=== PATIENT | male | born 1960 | race Caucasian/White ===

== ENCOUNTER → 2016-08-18 | Outpatient (CLI) | payer OTHER ==
[~2016-08-18] VITALS: Ht 172.7 cm; Wt 129.7 kg
[~2016-08-18] MED LIST: BENICAR HCT 401 EAC1 PO; BENICAR20 MG PO; BUPRENORPHIN-N1 EACH SL; BUPRENORPHINE HC8 MG SL; BUPRENORPHINE HC8 MG TD; CELEBREX 200 M200 M1 PO; CELEBREX 200 M200 MG PO; CRANBERRY 4001 EAC1 PO; CYMBALTA60 MG PO; DEPO-TESTO100 MG/1 M IM; FELODIPINE ER10 MG PO; FELODIPINE ER2.5 MG; FIRST-TESTOSTER60 G1 TD; FISH OIL 1,0001 EAC5 PO; GLUCOSAMINE1000 MG PO; LIDODERM 5%1 PATCH; LISINOPRIL-HCT1 EAC2 PO; LISINOPRIL10 MG PO; LOSARTAN-HCTZ1 EAC1 PO; MOBIC7.5 MG PO; MUCINEX DM TABL1 TA1 PO; NEURONTIN 300300 M1 PO; OMEGA-31000 M1 PO; OXYCODONE-APAP1 EAC6 PO; OXYCONTIN30 MG PO; PARAFON FORTE500 M2 PO; PERCOCET 7.5-31 EAC1 PO; PERCOCET 7.5-31 EACH PO; PRILOSEC 10MG C10 M1 PO; RASPBERRY KETO100 MG PO; SKELAXIN 800 M800 M1 PO; SUBOXONE 8 MG-1 EAC1 SL; SUBOXONE 8 MG-1 EAC2 SL; SUBOXONE 8 MG-1 EAC3 SL; TIZANIDINE HCL4 M1 PO; TIZANIDINE HCL4 MG PO; TIZANIDINE4 MG/1 TA1 PO; TRAZODONE HCL50 MG PO; VITAMIN D31000 UNI2 PO; ZANAFLEX4 M1 PO
--- NOTE | ~2016-08-18 | HPC ---
[facility] [place] [address] PAIN MANAGEMENT CONSULTATION Name: MARIANNE LEYBENJAMIN Garcia Room #: REG DAYANARAJon Boggs#: [id number] Admission: 08/18/16 Attend Phys: Patrice Cordova DO Discharge: Date of : 60 Report #: [id number] THIS REPORT FOR: //name// CC: Ko Cordova SUBJECTIVE: The patient is a pleasant 56-year-old gentleman I treated for many years for bilateral knee pain requiring complex medication management. He had had a gastric bypass and had great difficulty with absorption of oral opiates. He ultimately was stable for many years on Suboxone 8/2 sublingual. He progressed to have a right total knee arthroplasty in 05/2015, left total knee arthroplasty in 07/2015. I last saw him in December, and we weaned off opiates altogether. He had chronic left shoulder pain with a longstanding rotator cuff tear. He ultimately had rotator cuff repair in 12/2015. This unfortunately did not go well, and he is having increasing pain there. Also, he has increasing pain in the low back; it is a little more on the right than the left. The patient is on lisinopril/hydrochlorothiazide, states he is taking that agent. PHYSICAL EXAMINATION: GENERAL: A 56-year-old gentleman, BMI is 43.5 kilograms per meter squared. Blood pressure is elevated today 152/100, pulse 102, and respirations are 18. NEUROLOGIC: Cranial nerves 2-12 are grossly intact. He does have a dysconjugate gaze. Upper extremity strength is preserved. There is significant decreased range of motion in left arm to abduction and extension. ABDOMEN: A large pannus. MUSCULOSKELETAL: Rises from chair using armrest. Gait is tandem. Very tender over the right SI with a positive JONY test on this side. Positive [place]. Positive distraction. The patient was seen for prolonged visit today from 1422 to 1450, greater than 50% of this time spent counseling the patient. Ultimately, we have elected to enter into an opiate [id number] contract to continue the patient on some chronic pain medicines. His pain has become more problematic following his shoulder surgery, and now with some SI mediated pain, he is having difficulty with work. 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 ASSESSMENT: Degenerative joint disease, bilateral knees by history; sacroiliac joint dysfunction by clinical exam and left rotator cuff repair with ongoing left shoulder pain requiring complex medication management. Co-morbidiy includes history of bariatric gastric surgery which has significantly impacted his ability to absorb po opioids. He did well with suboxone for many years prior to his knee surgeries. RECOMMENDATIONS: 1. We reviewed an opiate [id number] contract. [facility] [address] [place] [address] PAIN MANAGEMENT CONSULTATION Name: LAURA LEY Room #: REG SOPHIE Boggs#: [id number] Admission: 08/18/16 Attend Phys: Patrice Cordova DO Discharge: Date of : 60 Report #: [id number] patient understands his responsibilities under this contract having been a contract patient for many years. 2. We will start the patient back on Suboxone 11/15 up to b.i.d. I have taken the liberty of writing for 60 tablets or strips depending on whatever his insurance company will pay for. I told him to start with 1 at night. If this is sufficient, will continue. If he still has ongoing pain, increase to half in the morning and 1 at night. Again, if this is sufficient, will continue; however, I have written for him to be unable to take up to 2 S.L. tablets/film strips a day. Follow up in 1-2 months for reevaluation. <ELECTRONICALLY SIGNED> By: Patrice Cordova DO 08/21/16 0749 1514 [id number] Patrice Cordova DO /nt
[2016-08-18 13:49] VITALS: BP 152/100
== END ==
LOC: PAIN 13:11
DX: M17.0 Bilateral primary osteoarthritis of knee (principal); M53.3 Sacrococcygeal disorders, not elsewhere classified; I10 Essential (primary) hypertension; F32.9 Major depressive disorder, single episode, unspecified

== ENCOUNTER → 2016-12-08 | Outpatient (CLI) | payer OTHER ==
[~2016-12-08] VITALS: Ht 172.7 cm; Wt 125.6 kg
--- NOTE | ~2016-12-08 | HPC ---
[facility] [place] [address] PAIN MANAGEMENT CONSULTATION Name: YVES LEYFIGUEROABENJAMIN PAYAN Room #: [facility] [id number] Admission: 12/08/16 Attend Phys: Patrice Cordova DO Discharge: Date of : 60 Report #: [id number] THIS REPORT FOR: //name// CC: Ko Cordova The patient is a very pleasant 56-year-old gentleman well known to pain clinic, being treated for bilateral knee pain secondary to DJD, status post gastric bypass surgery, unable to tolerate most oral agents and in fact had had problems with opiate habituation and tolerance in the past, had been stable on Suboxone for many years. I saw him back on 08/18/2016 after a long hiatus. I started him back on Suboxone 11/15 b.i.d. Returns to pain clinic today, has been doing remarkably well on his current agents. Today, he notes that he feels like he is passing a kidney stone, he has done this in the past. He has maintained good hydration and he is afebrile. Notes otherwise his chronic shoulder, back and knee pain is generally controlled at a 5 on a VAS. Pain is exacerbated with activity and weather changes. PHYSICAL EXAMINATION: Shows a 56-year-old gentleman, BMI is elevated at 42.1, but he has lost a fair bit of weight. Blood pressure is elevated today at 165/114, pulse 73, respirations are 14, temperature is 98.7, oral. He does have some tenderness in bilateral flanks. He attributes his hypertension to increased pain from renal lithiasis. I did request the patient to follow up with the ER if he develops any symptoms of systemic illness, hyperpyrexia, nausea, vomiting. We also encouraged the patient to continue hydration. From a pain standpoint, he is doing well. No problems with daytime somnolence, mental acuity changes or constipation. No aberrant behavior suggestive for drug diversion. No subjective craving as the patient had hydrocodone in the distant past. We reviewed the fact that opiate medications are being used to provide analgesia adequate to support activities of daily living, not attempting to achieve a specific pain score on the 0-10 Visual Analog Scale. The current opiate medications are providing sufficient analgesia to allow the patient to participate in activities of daily living. The patient is not exhibiting any aberrant behavior suggestive of drug diversion. The patient is not having any adverse reactions to medications. The patient is not suffering from daytime somnolence or mental acuity changes. The patient is managing opiate-induced constipation with appropriate kbit-omr-hvspgyj agents and dietary considerations. The patient was counseled on concern for caution with operating a motor vehicle while using opiate medications. A physical exam was performed and the patient's functional status was evaluated. All patients with back pain were advised against the bed rest greater than 4 days and were advised to return to normal activities. Pain score assessment was noted and the treatment plan was reviewed with the patient. All current [address] [address] PAIN MANAGEMENT CONSULTATION Name: LAURA LEY Room #: REG SOPHIE Boggs#: [id number] Admission: 12/08/16 Attend Phys: Patrice Cordova DO Discharge: Date of : 60 Report #: [id number] medications, both prescribed and OTC were reviewed and reconciled on the electronic medical record. Tobacco screening was accomplished and smoking cessation was advised when indicated. BMI was noted and diet/exercise modification was recommended for all patients following outside normal parameters. I reviewed with the patient today their responsibilities to safeguard prescription medications, reviewed their responsibility to utilize medications only as prescribed by the physician. They are to seek and receive pain medications only from 1 physician group ( [facility]). They are to use 1 pharmacy and keep the clinic informed if they change pharmacies. Their responsibilities include making followup visits in a timely fashion and to avoid abrupt discontinuation of medication usage. Their responsibilities further include bringing their medications (bottles from the pharmacy with residual pills) to the visit for possible confirmation of pill counts and the patient understands it is their responsibility to submit to random drug screens to ensure both that the medications prescribed are present, and that no other controlled substances are present. All prescriptions provided today were generated electronically. ASSESSMENT: Chronic pain secondary to degenerative joint disease of bilateral knees, status post gastric bypass surgery, sacroiliac joint dysfunction, left rotator cuff repair and history of renal lithiasis. RECOMMENDATION: Continue Suboxone /2 b.i.d. I have taken the liberty of writing for 2 months of current medication. Follow up at that time, earlier if needed. <ELECTRONICALLY SIGNED> By: Patrice Cordova DO 12/11/16 1253 1531 [id number] Patrice Cordova DO /nt
[2016-12-08 13:35] VITALS: BP 165/114
== END ==
LOC: PAIN 07:07
DX: M17.0 Bilateral primary osteoarthritis of knee (principal); M53.3 Sacrococcygeal disorders, not elsewhere classified; G89.29 Other chronic pain

== ENCOUNTER → 2017-04-20 | Outpatient (CLI) | payer OTHER ==
[~2017-04-20] VITALS: Ht 175.3 cm; Wt 131.9 kg
[~2017-04-20] MED LIST changes: +FOLBIC RF TABL1 EACH PO; +TRAZODONE 150150 M1 PO; +VITAMIN D1000 UNI1 PO
--- NOTE | ~2017-04-20 | HPC ---
[facility] [address] [place] [address] PAIN MANAGEMENT CONSULTATION Name: LAURA LEY Room #: REG Jon Boggs#: [id number] Admission: 04/20/17 Attend Phys: Patrice Cordova DO Discharge: Date of : 60 Report #: [id number] THIS REPORT FOR: //name// CC: Ko Cordova The patient is a very pleasant 57-year-old gentleman who had long been treated for osteoarthritis affecting bilateral knees. I took over his care greater than a decade ago for lumbar radicular symptoms. He has also had increasing pain in his knees. He was taking hydrocodone at one point , had escalated up to a 6 to 8 tablets a day with dwindling efficacy. He had had a gastric bypass surgery and felt perhaps he was not absorbing the medication properly. We rotated OxyContin with again minimal efficacy. Ultimately, we rotated to Suboxone around 2008. He had been remarkably stable on this for a number of years. He subsequently had bilateral total knee arthroplasties and was last seen by myself on 12/08/2016. He subsequently weaned off of all opiate analgesics after rehabbing his knees. The patient returns to the pain clinic today. We had a prolonged visit from 12:45 to 13:15, greater than 50% of the 30-minute visit was spent counseling the patient. The patient notes he was doing reasonably well when he slipped and fell couple of weeks ago. He reinjured his left shoulder. He has had prior rotator cuff repair in the shoulder. He notes the pain is quite problematic. He states that near the end of weaning off of his Suboxone, he found that the Suboxone was making him quite drowsy. Today, he notes pain primarily in the left shoulder and exacerbated with any and all movement. PHYSICAL EXAMINATION: Shows 57-year-old gentleman, BMI is 42.9 kilograms per meter squared. Alert and oriented to person, place and time, judged to be a reasonable historian. No problems with daytime somnolence, mental acuity changes or constipation. He is taking Celebrex. He is a little bit hypertensive today 142/116, pulse 94 and respiration 16. He just did follow up with the general practitioner physician regarding hypertension and concurrent Celebrex use. He has pain with both active and passive range of motion of the left shoulder. Crepitance and pain with resistance to rotation. ASSESSMENT: Acute injury left shoulder rotator cuff tear, history of DJD bilateral knees, now status post total knee arthroplasties. He had been doing well. He has had a history of high risk complex medication management issues. After a long discussion, however, I have elected to start the patient on low dose Percocet 7.5/325 one tablet 2-3 times a day, prescription for 35 tablets generated today, a second prescription with a release in 2 weeks for another 35 tablets. The patient was given contact information for Dr. Saldivar [address] [address] PAIN MANAGEMENT CONSULTATION Name: LAURA LEY Room #: REG SOPHIE Boggs#: [id number] Admission: 04/20/17 Attend Phys: Patrice Cordova DO Discharge: Date of : 60 Report #: [id number], [facility], for evaluation and likely surgical intervention of that left shoulder. If he has not found to be a surgical candidate, we can consider a steroid injection to the left shoulder. If he requires long-term opiate analgesics, we will rotate to a long-acting opiate and likely back to Suboxone. The patient was discharged in good and stable condition today. <ELECTRONICALLY SIGNED> By: Patrice Cordova DO 04/23/17 0731 1455 [id number] Patrice Cordova DO /nt
[2017-04-20 12:43] VITALS: BP 142/116
== END ==
LOC: PAIN 06:45
DX: S49.82XA Other specified injuries of left shoulder and upper arm, initial encounter (principal); M75.102 Unspecified rotator cuff tear or rupture of left shoulder, not specified as traumatic; Z96.653 Presence of artificial knee joint, bilateral; Z79.899 Other long term (current) drug therapy; X58.XXXA Exposure to other specified factors, initial encounter; Y93.89 Activity, other specified; Y92.89 Other specified places as the place of occurrence of the external cause; Y99.8 Other external cause status

== ENCOUNTER → 2017-06-19 | Outpatient (CLI) | payer OTHER ==
[2017-06-19 12:05] VITALS: BP 153/95
[2017-06-19 12:55] VITALS: BP 138/92
== END ==
LOC: OPONC 02:12
DX: D50.9 Iron deficiency anemia, unspecified (principal)
CPT/HCPCS: 95000